=== PATIENT | male | born 1950 | race Caucasian/White ===

== ENCOUNTER 2020-06-25 13:41 | Outpatient (REF) | payer OTHER, SELFPAY ==
[2020-06-26 07:56] LABS: Estimated Average Glucose 148 mg/dL; Hemoglobin A1c % 6.8 %
== END 2020-06-25 13:42 | disposition home or self-care (01) ==
LOC: HO.MANLR 13:41
PROVIDERS: PCP Internal Medicine; Visit Provider Internal Medicine
DX: E11.65 Type 2 diabetes mellitus with hyperglycemia (principal)
CPT/HCPCS: 83036

== ENCOUNTER 2020-11-02 08:38 | Outpatient (REF) | payer OTHER, SELFPAY ==
[2020-11-02 12:04] LABS: Estimated Average Glucose 177 mg/dL; Hemoglobin A1c % 7.8 %
[2020-11-02 12:50] LABS: Alanine Aminotransferase 35 U/L (0-40); Albumin Level 4.2 g/dL (3.5-5.0); Alkaline Phosphatase 55 U/L (39-117); Anion Gap 13 (12-20); Aspartate Amino Transferase 24 U/L (5-37); Bilirubin Total 0.6 mg/dL (0.0-1.0); Blood Urea Nitrogen 17 mg/dL (9-16); Calcium 9.2 mg/dL (8.4-10.2); Carbon Dioxide 28 mmol/L (22-29); Chloride 103 mmol/L (96-108); Cholesterol 235 mg/dL; Estimated Glomerular Filt Rate > 60; Glucose Fasting 189 mg/dL (60-99); HDL Cholesterol 41 mg/dL; LDL Cholesterol Calculated 129 mg/dl; Potassium 4.4 mmol/L (3.3-5.1); Sodium 140 mmol/L (135-145); Triglycerides 328 mg/dL
[2020-11-02 18:20] LABS: Creatinine Urine 139.76 mg/dL; Microalbum/Creatinine Ratio Ur 13.5 ug/mg cr
== END 2020-11-02 08:39 | disposition home or self-care (01) ==
LOC: HO.MANLR 08:38
PROVIDERS: PCP Internal Medicine; Visit Provider Internal Medicine
DX: E11.65 Type 2 diabetes mellitus with hyperglycemia (principal)
CPT/HCPCS: 36415; 80053; 80061; 82043; 83036

== ENCOUNTER 2021-02-25 15:32 | Outpatient (REF) | payer OTHER, SELFPAY ==
[2021-02-25 18:08] LABS: Estimated Average Glucose 166 mg/dL; Hemoglobin A1c % 7.4 %
== END 2021-02-25 15:33 | disposition home or self-care (01) ==
LOC: HO.MANLDS 15:32
PROVIDERS: PCP Internal Medicine; Visit Provider Internal Medicine
DX: E11.65 Type 2 diabetes mellitus with hyperglycemia (principal)
CPT/HCPCS: 36415; 83036

== ENCOUNTER 2021-05-30 10:05 | Outpatient (REF) | payer OTHER, SELFPAY ==
[2021-05-30 11:41] LABS: Estimated Average Glucose 174 mg/dL; Hemoglobin A1c % 7.7 %
== END 2021-05-30 10:06 | disposition home or self-care (01) ==
LOC: HO.MANLDS 10:05
PROVIDERS: PCP Internal Medicine; Visit Provider Internal Medicine
DX: E11.65 Type 2 diabetes mellitus with hyperglycemia (principal)
CPT/HCPCS: 36415; 83036

== ENCOUNTER 2021-09-05 09:56 | Outpatient (REF) | payer OTHER, SELFPAY ==
[2021-09-05 11:35] LABS: Estimated Average Glucose 203 mg/dL; Hemoglobin A1c % 8.7 %
[2021-09-05 11:49] LABS: Alanine Aminotransferase 38 U/L (0-40); Albumin Level 4.1 g/dL (3.5-5.0); Alkaline Phosphatase 62 U/L (39-117); Anion Gap 12 (12-20); Aspartate Amino Transferase 27 U/L (5-37); Bilirubin Total 0.5 mg/dL (0.0-1.0); Blood Urea Nitrogen 12 mg/dL (9-16); Calcium 9.4 mg/dL (8.4-10.2); Carbon Dioxide 28 mmol/L (22-29); Chloride 103 mmol/L (96-108); Cholesterol 253 mg/dL; Estimated Glomerular Filt Rate > 60; Glucose Fasting 225 mg/dL (60-99); HDL Cholesterol 41 mg/dL; LDL Cholesterol Calculated 159 mg/dl; Potassium 4.4 mmol/L (3.3-5.1); Sodium 139 mmol/L (135-145); Total Protein 7.4 g/dL (6.5-8.0); Triglycerides 267 mg/dL
== END 2021-09-05 09:57 | disposition home or self-care (01) ==
LOC: HO.MANLDS 09:56
PROVIDERS: PCP Internal Medicine; Visit Provider Internal Medicine
DX: E11.65 Type 2 diabetes mellitus with hyperglycemia (principal)
CPT/HCPCS: 36415; 80053; 80061; 83036

== ENCOUNTER 2022-03-31 08:42 | Outpatient (REF) | payer OTHER, SELFPAY ==
[2022-03-31 11:40] LABS: Estimated Average Glucose 137 mg/dL; Hemoglobin A1c % 6.4 %
[2022-03-31 11:41] LABS: Alanine Aminotransferase 22 U/L (0-40); Albumin Level 3.9 g/dL (3.5-5.0); Alkaline Phosphatase 46 U/L (39-117); Anion Gap 14 (12-20); Aspartate Amino Transferase 20 U/L (5-37); Bilirubin Total 0.4 mg/dL (0.0-1.0); Blood Urea Nitrogen 12 mg/dL (9-16); Calcium 8.9 mg/dL (8.4-10.2); Carbon Dioxide 28 mmol/L (22-29); Chloride 104 mmol/L (96-108); Cholesterol 248 mg/dL; Estimated Glomerular Filt Rate > 60; Glucose Random 149 mg/dL (60-115); HDL Cholesterol 42 mg/dL; LDL Cholesterol Calculated 136 mg/dl; Potassium 4.4 mmol/L (3.3-5.1); Sodium 142 mmol/L (135-145); Total Protein 6.9 g/dL (6.5-8.0); Triglycerides 353 mg/dL
== END 2022-03-31 08:43 | disposition home or self-care (01) ==
LOC: HO.MANLDS 08:42
PROVIDERS: Visit Provider Internal Medicine
DX: E11.65 Type 2 diabetes mellitus with hyperglycemia (principal)
CPT/HCPCS: 36415; 80053; 80061; 83036

== ENCOUNTER 2022-04-03 10:45 | Outpatient (REF) | payer OTHER, SELFPAY ==
[2022-04-03 13:54] LABS: Creatinine Urine 107.16 mg/dL; Microalbum/Creatinine Ratio Ur 7.4 ug/mg cr
== END 2022-04-03 10:46 | disposition home or self-care (01) ==
LOC: HO.MANLNP 10:45
PROVIDERS: Visit Provider Internal Medicine
DX: E11.65 Type 2 diabetes mellitus with hyperglycemia (principal)
CPT/HCPCS: 82043

== ENCOUNTER 2022-07-17 10:01 | Outpatient (REF) | payer OTHER, SELFPAY ==
[2022-07-17 11:49] LABS: Estimated Average Glucose 151 mg/dL; Hemoglobin A1c % 6.9 %
== END 2022-07-17 10:02 | disposition home or self-care (01) ==
LOC: HO.MANLDS 10:01
PROVIDERS: Visit Provider Internal Medicine
DX: E11.65 Type 2 diabetes mellitus with hyperglycemia (principal)
CPT/HCPCS: 36415; 83036

== ENCOUNTER 2022-11-03 08:16 | Outpatient (REF) | payer OTHER, SELFPAY ==
[2022-11-03 11:58] LABS: Estimated Average Glucose 157 mg/dL; Hemoglobin A1c % 7.1 %
[2022-11-03 12:28] LABS: Creatinine Urine 120.82 mg/dL; Microalbum/Creatinine Ratio Ur 8.2 ug/mg cr
[2022-11-03 12:44] LABS: Alanine Aminotransferase 32 U/L (0-40); Alkaline Phosphatase 53 U/L (39-117); Anion Gap 13 (12-20); Aspartate Amino Transferase 20 U/L (5-37); Bilirubin Total 0.5 mg/dL (0.0-1.0); Blood Urea Nitrogen 15 mg/dL (9-16); Calcium 9.1 mg/dL (8.4-10.2); Carbon Dioxide 29 mmol/L (22-29); Chloride 103 mmol/L (96-108); Cholesterol 247 mg/dL; Estimated Glomerular Filt Rate > 60; Glucose Random 169 mg/dL (60-115); HDL Cholesterol 41 mg/dL; LDL Cholesterol Calculated 144 mg/dl; Potassium 4.5 mmol/L (3.3-5.1); Sodium 140 mmol/L (135-145); Total Protein 6.8 g/dL (6.5-8.0); Triglycerides 313 mg/dL
== END 2022-11-03 08:17 | disposition home or self-care (01) ==
LOC: HO.MANLDS 08:16
PROVIDERS: Visit Provider Internal Medicine
DX: E11.65 Type 2 diabetes mellitus with hyperglycemia (principal)
CPT/HCPCS: 36415; 80053; 80061; 82043; 83036

== ENCOUNTER 2023-03-30 08:19 | Outpatient (REF) | payer OTHER, SELFPAY ==
[2023-03-30 14:08] LABS: Estimated Average Glucose 137 mg/dL; Hemoglobin A1c % 6.4 %
== END 2023-03-30 08:20 | disposition home or self-care (01) ==
LOC: HO.MANLDS 08:19
PROVIDERS: Visit Provider Internal Medicine
DX: E11.65 Type 2 diabetes mellitus with hyperglycemia (principal)
CPT/HCPCS: 36415; 83036

== ENCOUNTER 2023-04-02 14:31 | Outpatient (REF) | payer OTHER, SELFPAY ==
[2023-04-02 17:33] LABS: MANUAL DIFF FLAG NO
[2023-04-02 17:59] LABS: Alanine Aminotransferase 26 U/L (0-40); Albumin Level 4.2 g/dL (3.5-5.0); Alkaline Phosphatase 54 U/L (39-117); Anion Gap 19 (12-20); Aspartate Amino Transferase 23 U/L (5-37); Bilirubin Total 0.3 mg/dL (0.0-1.0); Blood Urea Nitrogen 17 mg/dL (9-16); Calcium 10.3 mg/dL (8.4-10.2); Carbon Dioxide 22 mmol/L (22-29); Chloride 103 mmol/L (96-108); Estimated Glomerular Filt Rate > 60; Glucose Random 152 mg/dL (60-115); Potassium 4.5 mmol/L (3.3-5.1); Sodium 139 mmol/L (135-145); Total Protein 7.7 g/dL (6.5-8.0)
[2023-04-02 18:48] LABS: Basophils Absolute Auto 0.1 X10*3/uL (0.0-0.2); Basophils Percent Auto 0.7 % (0-2); Eosinophils Absolute Auto 0.1 X10*3/uL (0.0-0.4); Eosinophils Percent Auto 1.2 % (0-4); Hematocrit 41.2 % (42.0-52.0); Hemoglobin 13.2 g/dl (14.0-18.0); Imm Gran Abs Auto 0.05 X10*3/uL (0.00-0.03); Imm Gran Pct Auto 0.4 % (0.0-0.4); Lymphocytes Absolute Auto 2.5 X10*3/uL (1.2-4.9); Lymphocytes Percent Auto 21.4 % (20-40); Mean Corpuscular Hemoglobin 29.7 pg (27.0-33.0); Mean Corpuscular Volume 92.8 fL (80.0-98.0); Mean Platelet Volume 10.2 fL (9.4-12.4); Monocytes Absolute Auto 1.3 X10*3/uL (0.1-1.2); Monocytes Percent Auto 11.7 % (2-11); Neutrophils Absolute Auto 7.4 x10*3/uL (2.0-8.3); Neutrophils Percent Auto 64.6 % (45-73); Platelet Count 353 X10*3/uL (160-400); Red Blood Count 4.44 X10*6/uL (4.60-5.80); Red Cell Distribution Width 13.2 % (11.0-16.0); White Blood Count 11.4 X10*3/uL (4.8-10.8)
== END 2023-04-02 14:32 | disposition home or self-care (01) ==
LOC: HO.MANLDS 14:31
PROVIDERS: Visit Provider Internal Medicine
DX: E11.65 Type 2 diabetes mellitus with hyperglycemia (principal)
CPT/HCPCS: 36415; 80053; 85025

== ENCOUNTER 2023-06-29 13:12 | Outpatient (REF) | payer OTHER, SELFPAY ==
[2023-06-29 14:27] LABS: Estimated Average Glucose 148 mg/dL; Hemoglobin A1c % 6.8 % (<6.0)
== END 2023-06-29 13:13 | disposition home or self-care (01) ==
LOC: HO.MANLDS 13:12
PROVIDERS: Visit Provider Internal Medicine
DX: E11.65 Type 2 diabetes mellitus with hyperglycemia (principal)
CPT/HCPCS: 36415; 83036

== ENCOUNTER 2023-11-16 08:03 | Outpatient (REF) | payer OTHER, SELFPAY ==
[2023-11-16 13:41] LABS: Estimated Average Glucose 160 mg/dL; Hemoglobin A1c % 7.2 % (<6.0)
[2023-11-16 14:17] LABS: Alanine Aminotransferase 25 U/L (0-40); Alkaline Phosphatase 54 U/L (39-117); Anion Gap 16 (12-20); Aspartate Amino Transferase 18 U/L (5-37); Bilirubin Total 0.3 mg/dL (0.0-1.0); Blood Urea Nitrogen 17 mg/dL (9-16); Calcium 9.6 mg/dL (8.4-10.2); Carbon Dioxide 23 mmol/L (22-29); Chloride 104 mmol/L (96-108); Cholesterol 261 mg/dL (<200); Estimated Glomerular Filt Rate > 60; Glucose Random 157 mg/dL (60-115); HDL Cholesterol 45 mg/dL (>40); LDL Cholesterol Calculated 141 mg/dL (<100); Potassium 4.5 mmol/L (3.3-5.1); Sodium 138 mmol/L (135-145); Total Protein 7.6 g/dL (6.5-8.0); Triglycerides 375 mg/dL (<150)
== END 2023-11-16 08:04 | disposition home or self-care (01) ==
LOC: HO.MANLDS 08:03
PROVIDERS: Visit Provider Internal Medicine
DX: E11.65 Type 2 diabetes mellitus with hyperglycemia (principal)
CPT/HCPCS: 36415; 80053; 80061; 83036

== ENCOUNTER 2024-02-25 10:13 | Outpatient (REF) | payer OTHER, SELFPAY ==
[2024-02-25 13:42] LABS: Estimated Average Glucose 169 mg/dL; Hemoglobin A1c % 7.5 % (<6.0)
== END 2024-02-25 10:14 | disposition home or self-care (01) ==
LOC: HO.MANLDS 10:13
PROVIDERS: Visit Provider Internal Medicine
DX: E11.65 Type 2 diabetes mellitus with hyperglycemia (principal)
CPT/HCPCS: 36415; 83036

== ENCOUNTER 2024-04-08 14:39 | Outpatient (REF) | payer OTHER, SELFPAY ==
[2024-04-08 18:15] LABS: MANUAL DIFF FLAG NO
[2024-04-08 18:27] LABS: Basophils Absolute Auto 0.1 X10*3/uL (0.0-0.2); Basophils Percent Auto 0.7 % (0-2); D Dimer High Sensitivity < 150 NG/ML; Eosinophils Absolute Auto 0.1 X10*3/uL (0.0-0.4); Hematocrit 46.8 % (42.0-52.0); Hemoglobin 15.6 g/dl (14.0-18.0); Imm Gran Abs Auto 0.04 X10*3/uL (0.00-0.03); Imm Gran Pct Auto 0.4 % (0.0-0.4); Lymphocytes Absolute Auto 2.2 X10*3/uL (1.2-4.9); Lymphocytes Percent Auto 21.2 % (20-40); Mean Corpuscular HGB Conc 33.3 g/dl (31.0-36.0); Mean Corpuscular Hemoglobin 30.4 pg (27.0-33.0); Mean Corpuscular Volume 91.1 fL (80.0-98.0); Mean Platelet Volume 10.7 fL (9.4-12.4); Monocytes Absolute Auto 1.1 X10*3/uL (0.1-1.2); Monocytes Percent Auto 10.3 % (2-11); Neutrophils Absolute Auto 6.8 x10*3/uL (2.0-8.3); Neutrophils Percent Auto 66.4 % (45-73); Platelet Count 337 X10*3/uL (160-400); Red Blood Count 5.14 X10*6/uL (4.60-5.80); Red Cell Distribution Width 13.3 % (11.0-16.0); White Blood Count 10.3 X10*3/uL (4.8-10.8)
[2024-04-08 18:35] LABS: Alanine Aminotransferase 26 U/L (0-40); Albumin Level 4.4 g/dL (3.5-5.0); Alkaline Phosphatase 59 U/L (39-117); Anion Gap 16 (12-20); Aspartate Amino Transferase 18 U/L (5-37); Bilirubin Total 0.2 mg/dL (0.0-1.0); Blood Urea Nitrogen 20 mg/dL (9-16); C Reactive Protein 0.28 mg/dL (< or = 0.50); Calcium 10.2 mg/dL (8.4-10.2); Carbon Dioxide 26 mmol/L (22-29); Chloride 102 mmol/L (96-108); Estimated Glomerular Filt Rate > 60; Gamma Glutamyl Transpeptidase 60 U/L (11-51); Glucose Random 169 mg/dL (60-115); Iron 60 mcg/dL (45-160); Percent Iron Saturation 19 % (15-50); Potassium 4.2 mmol/L (3.3-5.1); Sodium 140 mmol/L (135-145); Total Iron Binding Capacity 324 mcg/dL (228-428); Total Protein 8.2 g/dL (6.5-8.0); Unsaturated Iron Binding 264 ug/dL
[2024-04-08 18:49] LABS: Prostate Specific Antigen 0.66 ng/mL (<0.05-4.0)
[2024-04-08 18:51] LABS: Amylase 63 U/L (28-100); Lipase 32 U/L (8-78)
[2024-04-08 18:56] LABS: Ferritin 80 ng/mL (20-250); Free T4 (Free Thyroxine) 0.97 ng/dL (0.71-1.85); Thyroid Stimulating Hormone 1.34 uIU/mL (0.32-4.0); Vitamin D 25-OH Total 109.6 ng/mL (>30)
[2024-04-08 18:57] LABS: Erythrocyte Sedimentation Rate 30 MM/HR (0-15)
[2024-04-08 19:04] LABS: Folate 13.5 ng/mL (> or = 4.0); Vitamin B12 407 pg/mL (200-900)
[2024-04-09 05:51] LABS: Parathyroid Hormone Intact 53.4 pg/mL (8.7-77.1)
[2024-04-09 12:42] LABS: Lyme Abs Screen <0.90 index
[2024-04-10 12:48] LABS: Thyroid Peroxidase Antibodies <1 IU/mL (<9)
[2024-04-14 16:25] LABS: Thyroid Stimulating Immunoglob <89 % baseline (<140)
== END 2024-04-08 14:40 | disposition home or self-care (01) ==
LOC: HO.MANLDS 14:39
PROVIDERS: Visit Provider Physician Assistant
DX: R53.83 Other fatigue (principal); R07.89 Other chest pain; R35.1 Nocturia; K59.00 Constipation, unspecified; Z12.5 Encounter for screening for malignant neoplasm of prostate
CPT/HCPCS: 36415; 80053; 82150; 82306; 82607; 82728; 82746; 82977; 83540; 83690; 83970; 84153; 84439; 84443; 84445; 85025; 85379; 85652; 86140; 86376; 86617; 86618

== ENCOUNTER 2024-04-09 09:30 | Outpatient (REF) | payer OTHER, SELFPAY ==
[2024-04-09 18:09] LABS: Appearance Urine Clear; Color Urine Yellow; Glucose Urine UA 500 mg/dL (Negative); Leukocyte Esterase Urine Negative (Negative); Nitrite Urine Negative (Negative); Specific Gravity - Urine >= 1.030 (1.005-1.025); Urine Blood Negative (Negative); Urine Ketones Trace mg/dL (Negative); Urine Protein Negative (Neg-Trace)
== END 2024-04-09 09:31 | disposition home or self-care (01) ==
LOC: HO.MANLNP 09:30
PROVIDERS: Visit Provider Physician Assistant
DX: R35.1 Nocturia (principal)
CPT/HCPCS: 81003

== ENCOUNTER 2025-01-21 11:18 | Outpatient (REF) | payer OTHER, SELFPAY ==
--- OUTSIDE RECORDS SUMMARY | 2025-01-21 12:34 | XMS_ITS | Continuity of Care Document ---
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 MODERATE MUST MEET 2 OUT OF 3 ELEMENTS: PROBLEMS, DATA OR RISK ELEMENT 1: PROBLEMS ADDRESSED 1 OR MORE CHRONIC ILLNESS WITH EXACERBATION OR 2 OR MORE STABLE CHRONIC ILLNESSES OR 1 UNDIAGNOSED NEW PROBLEM OR 1 ACUTE ILLNESS W/SYMPTOMS OR 1 ACUTE COMPLICATED INJURY ELEMENT 2: DATA MUST MEET 1 OF 3 CATEGORIES CATEGORY 1: REVIEW OF PRIOR EXTERNAL NOTES, REVIEW OF RESULTS, ORDERING OF EACH TEST, ASSESSMENT REQUIRING INDEPENDENT HISTORIAN OR CATEGORY 2: INDEPENDENT INTERPRETATION OF TESTS BY ANOTHER PHYSICIAN OR SPECIALIST OR CATEGORY 3: DISCUSSION OF MGT OR TEST INTERPRETATION W/EXTERNAL PHYSICIAN OR SPECIALIST ELEMENT 3: RISK RISK OF COMPLICATIONS AND/OR MORBIDITY OR MORTALITY OF PATIENT MANAGEMENT PROVIDER MUST THOROUGHLY DOCUMENT EACH ELEMENT THAT IS COVERED Not available 01/21/2025 11:09:08 Plan of Treatment Reminders Order Date Submit Date Provider Last Modified By Organization Details Last Modified Time Details Appointments SDV 2024 10:30A M DR DE LA ROSA Not available Not available Not available FOLLOW UP 15 2024 11:30A M DR DE LA ROSA Not available Not available Not available Lab hemoglobi n A1c, QN, blood 2024 025 [facility], [address] [place] [address], [place], [address], 01/21/2025 11:12:11 CMP, serum or plasma 2024 025 [facility], [address] [place], [address], 01/21/2025 11:12:11 Referral None recorded. Procedures None recorded. Surgeries None recorded. Imaging None recorded. Medication Orders erythromy home 5 mg/gram (0.5 %) eye ointment 2024 025 [facility], [address] [place], [address], 01/21/2025 11:15:10 Patient TargetsNo targets recorded. Patient Instructions Encounter Date Encounter Id Patient Instructions Last Modified By Organization Details Last Modified Time 01/21/2025 [id number] learning about type 2 diabetes Not available 01/21/2025 11:11:04 type 2 diabetes: care instructions Not available 01/21/2025 11:11:04 psoriasis: care instructions Not available 01/21/2025 11:11:03 high blood pressure: care instructions Not available 01/21/2025 11:11:04 learning about high blood pressure Not available 01/21/2025 11:11:04 Reason for Referral None Reported. Problems Name Problem SNOMED Code Status Onset Date Resolution Date Notes Provider Name and Address Organization Details Recorded Time Type 2 diabetes mellitus 11183469 Active 2017 Ellen vu [facility] 4 11:43:23 Psoriasis 1036578 Active 2017 Pernell De La Rosa, DO [address] [place], [address], [facility] 5 11:09:33 Ischemic heart disease 566467227 Active 2017 stent 8 Ellen vu [facility] 4 09:01:01 Osteomyel itis of vertebra 064942765 Active 2017 C5-6 Ellen vu [facility] 4 09:01:01 Essential hypertens ion 22615502 Active 2017 Ellen vu [facility] 4 11:43:23 Hyperchol esterolem ia 57210082 Active 2017 Ellen vu, [facility] 4 11:43:22 Onychomyc osis 895938972 Active 2020 Not Available [facility] 4 03:28:44 Benign prostatic hyperplas ia 501267631 Active 2021 Ellen vu, [facility] 4 09:01:01 Osteoarth ritis of hip 951695940 Active 2021 Ellen vu, [facility] 4 09:01:01 Bilateral osteoarth ritis of knees 606981093294 107 Active 2021 Ellen vu, [facility] 4 09:01:01 Pain of bilateral hip joints 519868485948 24355 Active 2021 Ellen vu [facility] 4 09:01:13 Pleural effusion 35065600 Active 2022 Ellen vu, [facility] 4 09:01:01 Acute pericardi al effusion 63396681 Active 2022 Not Available [facility] 4 03:28:44 Pericardi tis 2111939 Active 2022 Not Available [facility] 4 03:28:44 Post-acut e COVID-19 2218733566 Active 2023 Ellen vu [facility] 4 09:01:13 Acute sinusitis 21225338 Active 2023 Ellen vu [facility] 4 09:01:13 COVID-19 007833134 Active 2023 Ellen vu, [facility] 4 09:01:13 Pressure injury of buttock stage I 118857356962 94911 Active 2023 Ellen vu [facility] 4 09:01:13 Pericardi al effusion 070683534 Active 2023 Pernell De La Rosa DO [address] [place] [address], [phone], [facility] 4 10:59:47 Fatigue 37674331 Active 2023 AYLIN LOPEZ [address] [place] [address], [address], [facility] 4 14:23:24 Atypical chest pain 341032598 Active 2023 AYLIN LOPEZ [address] [place] [address], [address], [facility] 4 14:24:51 Nocturia 405671147 Active 2023 AYLIN LOPEZ [address] [place] [address], [address], [facility] 4 14:25:38 Constipat ion 55723159 Active 2023 AYLIN LOPEZ [address] [place] [address], [address], [facility] 4 14:26:05 Tremor 85716719 Active 2023 Pernell De La Rosa DO [address] [place] [address], [address], [facility] 4 16:42:16 Mixed sleep apnea 683133938 Active 2023 Pernell De La Rosa DO [address] [place] [address], [phone], [facility] 4 20:45:58 Sleep apnea 64755607 Active 2023 Pernell De La Rosa DO [address] [place] [address], [address], [facility] 4 21:08:59 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 Please review these documents and add these problems to the patient's chart manually as needed. Problem Notes None recorded. Medical Equipment None Reported. Allergies Allergen ID Allergen Name Allergen Category Reaction Reaction Severity Criticality Documentation Date Start Date Code Code System Note Provider Name and Address Organization Details Recorded Time 360 penicilli n V Not available Not available Not available Not available 11/07/2017 7984 [facility] 08:[facility]18 361 Product containin g 3-hydroxy -3-methyl glutaryl- coenzyme A reductase inhibitor (product) medicatio n myalgias (muscle pain) Not available Not available 11/07/2017 57396 009 [facility] 08:[facility]26 Medications Name Sig Start Date Stop Date Status Note LastModified by Organization Details LastModified Time Prescriptio n - Renewal active Not Available Not Available Not Available doxycycline hyclate 100 mg capsule Take 1 capsule twice a day by oral route with meals for 10 days. 02/25 completed Not Available Not Available Not Available ketoconazol e 2 % shampoo APPLY TOPICALLY TO THE SCALP EVERY DAY. LEAVE ON 10 MINUTES THEN RINSE. WHEN CONTROLLE D USE 2 TIMES A WEEK FOR MAINTENAN CE active Not Available Not Available No t Available azithromyci n 250 mg tablet TAKE 2 TABLETS BY MOUTH TODAY, THEN TAKE 1 TABLET DAILY FOR 4 DAYS DIRECTED 11/18 completed Not Available Not Available Not Available ibuprofen 800 mg tablet TAKE 1 TABLET BY MOUTH 3 TIMES A DAY FOR 5 DAYS. DISCONTIN UE IF PAIN HAS COMPLETEL Y RESOLVED. 07/02 completed Not Available Not Available Not Available polysacchar leobardo iron complex 150 mg iron capsule TAKE 1 CAPSULE BY MOUTH TWICE A DAY *NOT COVERED* active Not Available Not Available No t Available betamethaso ne, augmented 0.05 % topical cream PLEASE SEE ATTACHED FOR DETAILED DIRECTION S active Not Available Not Available No t Available fluorouraci l 5 % topical cream PLEASE SEE ATTACHED FOR DETAILED DIRECTION S active Not Available Not Available No t Available glipizide ER 5 mg tablet, extended release 24 hr TAKE 1 TABLET BY MOUTH EVERY DAY NEEDS APPT FOR FURTHER REFILLS. CALL OFFICE active Not Available Not Available No t Available nystatin 500,000 unit tablet TAKE 2 TABLETS BY MOUTH TWICE A DAY active Not Available Not Available No t Available triamcinolo ne acetonide 0.1 % topical cream 08/18 completed Not Available Not Available Not Available oxycodone-a cetaminophe n 5 mg-325 mg tablet TAKE 1 TABLET BY MOUTH EVERY 6 HOURS FOR PAIN. WILL CAUSE DROWSINES S 04/02 completed Not Available Not Available Not Available terbinafine HCl 250 mg tablet TAKE 1 TABLET BY MOUTH EVERY DAY 02/28 completed Not Available Not Available Not Available amoxicillin 875 mg tablet 04/02 completed Not Available Not Available Not Available triamcinolo ne acetonide 0.025 % topical cream PLEASE SEE ATTACHED FOR DETAILED DIRECTION S active Not Available Not Available No t Available tamsulosin 0.4 mg capsule TAKE 1 CAPSULE BY MOUTH EVERY DAY 11/18 completed Not Available Not Available Not Available pantoprazol e 40 mg tablet,reina yed release TAKE 1 TABLET BY MOUTH 2 TIMES A DAY FOR 14 DAYS. 07/02 completed Not Available Not Available Not Available erythromyci n 5 mg/gram (0.5 %) eye ointment APPLY 1 CM RIBBON INTO THE LOWER CONJUNCTI DINAH SAC(S) IN THE AFFECTED EYE(S) BY OPHTHALMI C ROUTE 3 TIMES PER DAY 2024 active Not Available Not Available Not Avai lable metformin 1,000 mg tablet TAKE 1 TABLET BY MOUTH TWICE A DAY NEEDS APPT FOR FURTHER REFILLS. CALL OFFICE 2024 active Not Available Not Available Not Avai lable calcipotrie ne 0.005 % topical cream PLEASE SEE ATTACHED FOR DETAILED DIRECTION S active Not Available Not Available No t Available furosemide 20 mg tablet TAKE ONE TAB QD PO 07/02 completed Not Available Not Available Not Available nystatin 100,000 unit/gram topical powder APPLY TO AFFECTED AREA 3 TIMES A DAY active Not Available Not Available No t Available methylpredn isolone 4 mg tablets in a dose pack as directed 01/02 completed Not Available Not Available Not Available colchicine 0.6 mg tablet TAKE 1 TABLET BY MOUTH 2 TIMES A DAY. 11/18 completed Not Available Not Available Not Available ketoconazol e 2 % topical cream APPLY TOPICALLY TO THE AFFECTED AREA OF FACE TWICE DAILY active Not Available Not Available No t Available lisinopril 2.5 mg tablet TAKE 1 TABLET BY MOUTH EVERY DAY- NEEDS APPT FOR FURTHER REFILLS 2024 active Not Available Not Available Not Avai lable naproxen 375 mg tablet,reina yed release 07/02 completed Not Available Not Available Not Available Asprin Ec Low Dose 81 mg tablet,reina yed release Take 1 tablet every day by oral route. active Not Available Not Available No t Available alfuzosin ER 10 mg tablet,exte nded release 24 hr TAKE 1 TABLET BY MOUTH EVERY DAY FOR 30 DAYS active Not Available Not Available No t Available metoprolol tartrate 25 mg tablet TAKE 1 TABLET BY MOUTH TWICE A DAY 11/18 completed Not Available Not Available Not Available clobetasol 0.05 % shampoo PLEASE SEE ATTACHED FOR DETAILED DIRECTION S active Not Available Not Available No t Available magnesium active Not Available Not Perlita ilable Not Available CoQ10 active Not Available Not Availa ble Not Available multivitami n active Not Available Not Available Not Available Vitamin D3 10 mcg (400 unit) capsule Take 1 unit every day by oral route. active Not Available Not Available No t Available coQ10 (liposomal ubiquinol) 04/28 completed Not Available Not Available Not Available Ilevro 0.3 % eye drops,suspe nsion 08/18 completed Not Available Not Available Not Available Vitals Date Recorded Body height Body mass index (BMI) Body weight Heart rate Oxygen saturation Oxygen saturation in Arterial blood by Pulse oximetry Systolic blood pressure Diastolic blood pressure Provider Name and Address Organization Details Last Updated DateTime 5 176.53 cm 31.9 kg/m2 20254.5 3 g 78 /min 97 % 97 % 124 mm[Hg] 68 mm[Hg] [facility] 5 10:41:12 Social History Question Answer Notes LastModified by Organizat ion Details LastModified Time Tobacco Smoking Status Former Smoker Not Available [facility] 07/06/2020 03:36:24 What Was The Date Of Your Most Recent Tobacco Screening? 01/21/2025 [email or web address] Information not available 01/21/2025 Sex: Unknown Functional Status Question Answer Note LastModified by Organization D etails LastModified Time Do you or have you ever used any other forms of tobacco or nicotine? No Information not available 07/19/2022 Mental Status None recorded. Family History Nothing Reported. Medical History No medical history recorded. Immunizations Vaccine Type Date Status Note Provider Nam e and Address Organization Details Recorded Time COVID-19, mRNA, LNP-S, PF, 30 mcg/0.3 mL dose 06/23/2021 completed Not Available [facility] 4 03:28:44 COVID-19, mRNA, LNP-S, PF, 30 mcg/0.3 mL dose 10/28/2020 completed Not Available [facility] 4 03:28:44 COVID-19, mRNA, LNP-S, PF, 30 mcg/0.3 mL dose 10/04/2020 completed Not Available [facility] 4 03:28:44 Past Encounters Encounter ID Performer Location Encounter Start Date Encounter Closed Date Diagnosis/Indication Diagnosis SNOMED-CT Code Diagnosis ICD10 Code Diagnosis Note [id number] DO [facility] [address] [address] 01/21/2025 10:30:29 01/21/2025 11:26:22 Type 2 diabetes mellitus 13807507 E11.65 a1c is pending today PRIOR: currently is 7.5 was 7.2 prior 6.8 despite the recent pericardit is PRIOR 6.4 was 7.1 last a1c is 6.4 and was 7.7 and 7.4 and prior 7.8 and last was 6.8 and before was was 7.7 so he is doing better thanks to his wifes cooking .but admits he has had a prob with keeping good diet Essential hypertension 37698076 I10 bp stable relates that he is doing fine and without issue with meds and has started to walk more states his left hip is more bothersome and now he is noticing that his gait is less stable echo looked great no issues Psoriasis 0327513 L40.9 is doing better with naltrexone !!!! [facility] Hordeolum externum of upper eyelid of left eye 0110487350 99273 H00.014 will tx Health Concerns Section Related Observation LastModified by Organization Detai ls LastModified Time None Recorded Concern Status LastModified by Organization Details LastModified Time None Recorded Payers Encounter Date Sequence Insurance Name Policy Number Policy Espinal Covered Member ID Espinal Member ID Guarantor Name 01/21/[address] [place] [address] [id number] Ryley Quiroga [id number] Ryley Quiroga Notes Date Note Type Note Provider Name and Address Organization Details Recorded Time 5 text/htm l Care Management - DiabetesReported bypatient.Self Care:seeing eye doctor yearly for dilated eye exam; checking feet regularly; normal range of home blood sugars (in the low 100s); no side effects from medications Associated Symptoms:symptoms are usually well controlled; no fatigue; no dizziness; no excessive sweating; no headaches; no confusion; no increased thirst; no increased appetite; no increased urination; no blurred vision; no numbness of feet; no calluses on feetCare Management - HypertensionReported bypatient.Self Care:not under emotional stress Severity:symptoms are improving; does not interfere with daily activities Associated Symptoms:no dizziness; no lightheadedness; no chest pain; no shortness of breath; no palpitations; no edema; no calf muscle cramps; no blurred vision; no confusion; no headaches; no fatigue her e for rechk doing ok getting txrelates he has a great monitor for glucose with the freestyle doing very wellstill sleeps longstates he is taking methylene blue for the mitochondrial diseasesees specialist in [place] doing a NAD tx for the mitochondrial ds but pays $625 for each infusion and also supp also taking naltrexone 3 tabs hs and his psoriasis and cleared up having an issue with his left eye irritated an swollen eyelid etc Pernell De La Rosa, DO [address] [facility], [place], [address], [facility] 01/21/2025 11:17:17
--- OUTSIDE RECORDS SUMMARY | 2025-01-21 12:35 | XMS_ITS | Data Portability ---
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 REVIEW OF PRIOR EXTERNAL NOTES/RESULTS, ORDERING OF TEST(S) CATEGORY 2. 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) MDM MODERATE MUST MEET 2 OUT OF [...] hemoglobi n A1c, QN, blood 2024 025 [facility], [address] [place] [address], [id number], 01/21/2025 11:12:11 CMP, serum or plasma 2024 025 [facility], [address] [place] [address], [id number], 01/21/2025 11:12:11 gamma-glu tamyl transfera se (ggt), serum 2023 024 [facility], [address] [place] [address], [id number], 04/08/2024 14:28:17 PTH (parathyr oid hormone), intact + calcium, serum or plasma 2023 024 [facility], [address] [place] [address], [address], 04/08/2024 14:28:18 amylase + lipase, serum 2023 024 [facility], [address] [place] [address], 94[address], 04/08/2024 14:28:18 D-dimer, quant, plasma 2023 024 [facility], [address] [place] [address], [address], 04/08/2024 14:28:18 PSA, total, serum or plasma 2023 024 [facility], [address] [place] [address], 87[address], 04/08/2024 14:28:18 urinalysi s complete, reflex culture 2023 024 [facility], [address] [place] [address], [address], 04/10/2024 11:34:58 TSH + free T4, serum 2023 024 [facility], [address] [place] [address], 74467, 04/08/2024 14:28:18 vitamin B12 + folate, serum or blood 2023 024 [facility], [address] [place] [address], [address], 04/08/2024 14:28:18 CBC w/ auto diff 2023 024 [facility], [address] [place] [address], [address], 04/08/2024 14:28:17 iron + TIBC + ferritin, serum 2023 024 [facility], [address] [place] [address], 345[address], 04/08/2024 14:28:17 CMP, serum or plasma 2023 024 [facility], [address] [place] [address], [address], 04/08/2024 14:28:18 ESR (erythroc yte sedimenta tion rate), blood 2023 024 [facility], [address] [place] [address], [id number], 04/08/2024 14:28:18 vitamin D, 25-hydrox y, total, serum 2023 024 [facility], [address] [place] [address], 65[address], 04/08/2024 14:28:18 C-reactiv e protein, quantitat christiano, serum or plasma 2023 024 [facility], [address] [place] [address], 717[address], 04/08/2024 14:28:18 lyme disease igg+igm, serum, reflex western blot 2023 024 [facility], [address] [place] [address], [id number], 04/10/2024 11:34:35 thyroid peroxidas e (tpo) Ab, serum 2023 024 [facility], [address] [place] [address], [address], 04/11/2024 11:22:50 tsi (thyroid- stimulati ng immunoglo bulin), serum 2023 024 [facility], [address] [facility], [place], [address], 04/15/2024 11:38:[address] referral 2023 024 mayur Bravo MD, [address] [facility], [place], [address], 04/30/2024 09:09:47 Procedures None recorded. Surgeries None recorded. Imaging MRI, cervical spine, w/o contrast 2023 024 john [facility], [address] [place], [address], 04/30/2024 09:10:15 Medication Orders erythromy home 5 mg/gram (0.5 %) eye ointment 2024 025 [facility], [address] [place], [address], 01/21/2025 11:15:10 alfuzosin ER 10 mg tablet,ex tended release 24 hr 2023 024 [facility], [address] [place], [address], 04/28/2024 16:41:34 Patient TargetsNo targets recorded. Patient Instructions Encounter Date Encounter Id Patient Instructions Last Modified By Organization Details Last Modified Time 04/28/2024 [id number] learning about type 2 diabetes Not available 04/28/2024 16:41:32 type 2 diabetes: care instructions Not available 04/28/2024 16:41:32 benign prostatic hyperplasia: care instructions Not available 04/28/2024 16:41:32 01/21/2025 [id number] learning about type 2 diabetes Not available 01/21/2025 11:11:04 type 2 diabetes: care instructions Not available 01/21/2025 11:11:04 psoriasis: care instructions Not available 01/21/2025 11:11:03 high blood pressure: care instructions Not available 01/21/2025 11:11:04 learning about high blood pressure Not available 01/21/2025 11:11:04 Reason for Referral Neurologist Referral for Mac radha Referring Physician: Pernell De La Rosa, Internal Medicine, Encounter Date: 04/28/2024 Results Created Date Observation Date Name Description Value Unit Range Abnormal Flag Note LastModifiedBy Organization Detail LastModifiedTime 03/13/20 24 03/13/2024 US, echoc ardio gram No observ ation record ed. [address], [address], 03/13/2024 21:07:53 05/13/20 24 05/11/2024 MRI, cervi claude spine , w/o contr ast No observ ation record ed. [email or web address] [address], [address], 05/14/2024 16:24:36 06/19/20 24 06/13/2024 sleep study , diagn ostic (PROC ) No observ ation record ed. [id number] [place], [address], 06/22/2024 21:08:32 Result Notes None recorded. Problems Name Problem SNOMED Code Status Onset Date Resolution Date Notes Provider Name and Address Organization Details Recorded Time Type 2 diabetes mellitus 35350977 Active 2017 Ellen vu [facility] 4 11:43:23 Psoriasis 7858752 Active 2017 Pernell De La Rosa, DO [address] [place] [address], [place], [address], [place] [facility] 5 11:09:33 Ischemic heart disease 553906201 Active 2017 stent 200 8 Ellen vu [facility] 4 09:01:01 Osteomyel itis of vertebra 266990154 Active 2017 C5-6 Ellen vu [facility] 4 09:01:01 Essential hypertens ion 37306341 Active 2017 Ellen Burton null, [facility] 4 11:43:23 Hyperchol esterolem ia 03760845 Active 2017 Ellenjanes Burton null, [facility] 4 11:43:22 Onychomyc osis 684533491 Active 2020 Not Available [facility] 4 03:28:44 Benign prostatic hyperplas ia 772667292 Active 2021 Ellen Burton null, [facility] 4 09:01:01 Osteoarth ritis of hip 894074999 Active 2021 Ellen Burton null, [facility] 4 09:01:01 Bilateral osteoarth ritis of knees 045443398317 107 [facility] 2021 [facility] 09:[facility]01 Pain of bilateral hip joints 521745561782 12786 Active 2021 Ellen Burton null, [facility] 4 09:01:13 Pleural effusion 41976348 Active 2022 Ellen vu, [facility] 4 09:01:01 Acute pericardi al effusion 20018527 Active 2022 Not Available [facility] 4 03:28:44 Pericardi tis 6972410 Active 2022 Not Available [facility] 4 03:28:44 Post-acut e COVID-19 4502418598 Active 2023 Ellen Burton null, [facility] 4 09:01:13 Acute sinusitis 76280243 Active 2023 Ellen vu, [facility] 4 09:01:13 COVID-19 800323360 Active 2023 Ellen vu, [facility] 4 09:01:13 Pressure injury of buttock stage I 820723791177 42450 Active 2023 [facility] 4 09:01:13 Pericardi al effusion 478317093 Active 2023 Pernell De La Rosa, DO [address] [place] [address], [address], [facility] 4 10:59:47 Fatigue 57664328 Active 2023 AYLIN LOPEZ [address] [place] [address], [address], [facility] 4 14:23:24 Atypical chest pain 736226929 Active 2023 AYLIN LOPEZ [address] [place] [address], [address], [facility] 4 14:24:51 Nocturia 212851287 Active 2023 AYLIN LOPEZ [address] [place] [address], [address], [facility] 4 14:25:38 Constipat ion 34616665 Active 2023 AYLIN LOPEZ [address] [place] [address], [address], [facility] 4 14:26:05 Tremor 23039493 Active 2023 Pernell De La Rosa, DO [address] [place] [address], [address], [facility] 4 16:42:16 Mixed sleep apnea 700133069 Active 2023 Pernell De La Rosa, DO [address] [place] [address], [address], [facility] 4 20:45:58 Sleep apnea 53784985 Active 2023 Pernell De La Rosa, DO [address] [place] [address], [address], [facility] 4 21:08:59 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 Please review these documents and add these problems to the patient's chart manually as needed. Problem Notes None recorded. Procedures Surgical History None recorded. Imaging Results Imaging Date Name Status LastModified by Organization Details LastModified Time 03/13/2024 [email or web address] [address], [address], 03/13/2024 21:07:53 05/11/2024 MRI, cervical spine, w/o contrast completed [email or web address] [address], [address], 05/14/2024 16:24:36 06/13/2024 sleep study, diagnostic (PROC) completed [address] [place], [address], 06/22/2024 21:08:32 Procedure Notes None recorded. Medical Equipment None Reported. Allergies Allergen ID Allergen Name Allergen Category Reaction Reaction Severity Criticality Documentation Date Start Date Code Code System Note Provider Name and Address Organization Details Recorded Time 360 penicilli n V Not available Not available Not available Not available 11/07/2017 7984 RxNorm Prabha Bar [facility] [place], operated by [facility] 8 08:57:18 361 Product containin g 3-hydroxy -3-methyl glutaryl- coenzyme A reductase inhibitor (product) medicatio n myalgias (muscle pain) Not available Not available 11/07/2017 71824 009 SNOMED ARLETH [facility] 8 08:57:26 Medications Name Sig Start Date [...] height Body mass index (BMI) Body weight Oxygen saturation Oxygen saturation in Arterial blood by Pulse oximetry Heart rate Systolic blood pressure Diastolic blood pressure Provider Name and Address Organization Details Last Updated DateTime 4 177.17 cm 32.2 kg/m2 038790. 1 g 96 % 96 % 93 /min 118 mm[Hg] 70 mm[Hg] Alice Singh [facility] 4 16:05:39 Date Recorded Body height Body mass index (BMI) Body weight Heart rate Oxygen saturation Oxygen saturation in Arterial blood by Pulse oximetry Systolic blood pressure Diastolic blood pressure Provider Name and Address Organization Details Last Updated DateTime 4 177.17 cm 32.2 kg/m2 100889. 1 g 81 /min 98 % 98 % 110 mm[Hg] 60 mm[Hg] Alice Singh [facility] 4 14:07:37 Date Recorded Body height Body mass index (BMI) Body weight Heart rate Oxygen saturation Oxygen saturation in Arterial blood by Pulse oximetry Systolic blood pressure Diastolic blood pressure Provider Name and Address Organization Details Last Updated DateTime 4 176.53 cm 33.3 kg/m2 101264. 58 g 74 /min 98 % 98 % 118 mm[Hg] 66 mm[Hg] Nathan Mcfadden [facility] 4 16:03:07 Date Recorded Body height Body mass index (BMI) Body weight Heart rate Oxygen saturation Oxygen saturation in Arterial blood by Pulse oximetry Systolic blood pressure Diastolic blood pressure Provider Name and Address Organization Details Last Updated DateTime 5 176.53 cm 31.9 kg/m2 60642.5 3 g 78 /min 97 % 97 % 124 mm[Hg] 68 mm[Hg] Yasmine Degroot [place] [facility] 5 10:41:12 Social History Question Answer Notes LastModified by Organizat ion Details LastModified Time Tobacco Smoking Status Former Smoker Not Available [facility], [facility]–1983 07/06/2020 03:36:24 What Was The Date Of [...] mcg/0.3 mL dose 06/23/2021 completed Not Available [facility] 4 03:28:44 COVID-19, mRNA, LNP-S, PF, 30 mcg/0.3 mL dose 10/28/2020 completed Not Available [facility] 4 03:28:44 COVID-19, mRNA, LNP-S, PF, 30 mcg/0.3 mL dose 10/04/2020 completed Not Available [facility] 4 03:28:44 Past Encounters Encounter ID Performer Location Encounter Start Date Encounter Closed Date Diagnosis/Indication Diagnosis SNOMED-CT Code Diagnosis ICD10 Code Diagnosis Note [id number] DO [facility] [address] [facility],[place] [address] 12/25/2017 13:51:03 12/25/2017 14:30:35 Cough 78447820 R05 f/u 1 week, sooner prn, continue rest Coronary arteriosclerosis 82041135 I25.10 stable Type 2 val betes mellitus 97840984 E11.9 A1C 7.7, follow [id number] Pernell Angelita De La Rosa [facility] [address] [facility] [address], [place] [address] 01/02/2018 09:34:31 01/02/2018 11:41:29 Cough 37419400 R05 improved, pt to try OTC allergy medicine Psoriasis 3981861 L40.9 Pt to obtain home light therapy machine, defers other medication s, discussed risks skin cancers, pt aware [id number] Pernell De La Rosa [facility] [address] [facility] [address] [address] [place] [address] 01/25/2018 09:31:13 01/25/2018 11:05:28 Type 2 diabetes mellitus 24598953 E11.65 has worsened diet etc and correspond ing elevation of A1c at 8.2 admits to diet noncomplia nce and lack of time for exercise Essential hypertension 37267822 I10 bp stable and without issue with meds Ischemic h eart disease 071480418 I25.9 asymptomat ic and no change in meds [id number] Pernell Angelita De La Rosa [facility] [address] [facility],[place] [address] [place] [address] 05/01/2018 10:15:27 05/01/2018 11:28:15 Type 2 diabetes mellitus 92166501 E11.65 has a a1c of 7.5 does ok with activity and diet lately but admits to diet noncomplia nce and lack of time for exercise will cont to use metformin for now realizing his age and the med Essential hypertension 30237925 I10 bp stable and without issue with meds Ischemic h eart disease 239318076 I25.9 asymptomat ic and no change in meds [id number] Pernell AquinoAshish De La Rosa [facility] [address] [facility] [address], [address] [facility] [place] [address] 08/05/2018 10:15:07 08/05/2018 14:45:22 Abdominal aortic aneurysm screening 105045303 Z13.6 will get a screening Essential hypertension 50583607 I10 bp stable and without issue with meds Type 2 val betes mellitus 52165120 E11.65 has a a1c of 7.9 from 7.5, 8.2 does fair with activity and diet lately but admits to diet noncomplia nce and lack of time for exercise will cont to use metformin for now realizing his age and the med Impacted cerumen 3749917 6 H61.20 [id number] Pernell De La Rosa DO [facility] [address] [facility],[place] [address] 11/19/2018 14:13:50 11/19/2018 14:55:14 Psoriasis 9752210 L40.9 received kenalog injection Cellulitis 293545693 L03 .90 doxycyclin e for 10 take pro biotic Type 2 val betes mellitus 64732359 E11.65 will plan on rechecking the a1c in a couple months due to the bad timing of his recent outbreak and treatment has a a1c of 7.9 from 7.5, 8.2 does fair with activity and diet lately but admits to diet noncomplia nce and lack of time for exercise will cont to use metformin for now realizing his [place] the [place] [id number] Pernell De La Rosa DO [facility] [address] [facility],[place] [address] [place] [address] 02/25/2019 14:54:04 02/25/2019 16:33:07 Essential hypertension 78225130 I10 bp stable and without issue with meds Type 2 val betes mellitus 42574643 E11.65 will plan on rechecking the a1c in a couple months due to the bad timing of his recent outbreak and treatment has been getting kenalog inj has a a1c of 10 from 7.9, admits to diet noncomplia nce and lack of time for exercise asks to have a few months to get a1c down will cont to use metformin for now realizing his age and the med at current a1c he is not cleared for any surgery elective Ischemic h eart disease 507867105 I25.9 asymptomat ic and no change in meds Psoriasis 8640146 L40.9 received kenalog injection several weeks ago has been using the [employer] home sweet for tx and states is starting to notice a diff has had severe outbreak over the spring Pernell De La Rosa DO [facility] [address] [facility] [address] [address] [facility] [address] 04/25/2019 11:18:25 04/25/2019 11:49:53 Type 2 diabetes mellitus 72670882 E11.65 has a a1c of 7.8 now was 10 from 7.9, admits to diet compliance and better time for exercise will cont to use metformin for now realizing his age and the med at current a1c he is cleared for his surgery Essential hypertension 55200150 I10 bp stable and without issue with meds Pre-surger y evaluation 307472697 Z01.818 he has been examined and lab reviewed a1c is now down adequately , per the 2017 TAPAN (revised) risk assessment he is currently cleared for the proposed cataract surgery Patient understand s to take his usual medication s prior to surgery and knows to hold his metformin until after the procedure [id number] Pernell De La Rosa [facility] [address] [facility], [place] [address] 08/18/2019 10:48:58 08/18/2019 11:27:10 Type 2 diabetes mellitus 36399533 E11.65 has a a1c of 7.0. and was 7.8 and was 10 from 7.9, admits to diet compliance and better time for exercise will cont to use metformin for now realizing his age and the med at current a1c he is cleared for his surgery Essential hypertension 06123904 I10 bp stable and without issue with meds Hepatitis C screening 41 8603302 Z11.59 with next lab [id number] Pernell De La Rosa [facility] [address] [facility], [place] [address] 11/17/2019 10:51:50 11/17/2019 11:37:05 Type 2 diabetes mellitus 12879098 E11.65 has a a1c of 7.7 was 7.0. and was 7.8 and was 10 from 7.9, admits to diet compliance and better time for exercise will cont to use metformin for now realizing his age and the med at current a1c Essential hypertension 49541804 I10 bp stable and without issue with meds and has started to walk more states his left hip is more bothersome Hypercholesterolemia 136 39301 E78.00 Psoriasis 3453654 L40.9 has a light sweet in his garage but hadnt been using it at all over winter needs to restart as it does work well Basal cell carcinoma of face 036536799 C44.311 will refer to [facility] dr corbin as this needs to be removed [id number] Pernell De La Rosa [facility] [address] [facility] [address] [address] [place] [address] 02/20/2020 10:33:18 02/20/2020 11:33:01 Type 2 diabetes mellitus 14395844 E11.65 have been waiting for his lab will cont to use metformin for now realizing his age and the med at current a1c Essential hypertension 35508770 I10 bp stable and without issue with meds and has started to walk more states his left hip is more bothersome Hypercholesterolemia 136 42221 E78.00 awaiting for his cholestero l Ischemic h eart disease 360571801 I25.9 asymptomat ic and no change in meds [id number] Pernell De La Rosa [facility] [address] [facility] [address],[place] [place] [address] 06/28/2020 12:01:26 06/28/2020 12:36:19 Type 2 diabetes mellitus 55278869 E11.65 have been waiting for his lab but his last a1c is 6.8 was 7.7 so he is doing better thanks to his wifes cooking . will cont to use metformin for now realizing his age and the med at current a1c Essential hypertension 28594630 I10 bp stable and without issue with meds and has started to walk more states his left hip is more bothersome [id number] Pernell De La Rosa [facility] [address] [facility] [address] [place] [address] 11/05/2020 10:17:48 11/05/2020 10:56:16 Type 2 diabetes mellitus 88866402 E11.65 have been waiting for his lab but his last a1c is up to 7.8 and last was 6.8 and before was was 7.7 so he is doing better thanks to his wifes cooking .but admits he has had a prob with keeping good diet will cont to use metformin for now realizing his age and the med at current a1c 7.8 Essential hypertension 04715843 I10 bp stable and without issue with meds and has started to walk more states his left hip is more bothersome Hypercholesterolemia 136 32105 E78.00 awaiting for his cholestero l Onychomycosis 893998252 B35.1 will try to work at treatment with terbinafin e Ischemic h eart disease 347936554 I25.9 asymptomat ic and no change in meds Psoriasis 8777317 L40.9 has a light sweet in his garage but hadnt been using it at all over winter needs to restart as it does work well Screening for malignant neoplasm of colon 786180123 Z12.11 [id number] [facility] [address] [facility], [place] [address] 02/28/2021 09:58:27 02/28/2021 11:06:11 Essential hypertension 45519290 I10 bp stable relates that he is doing fine and without issue with meds and has started to walk more states his left hip is more bothersome Type 2 val betes mellitus 59091039 E11.65 have been waiting for his lab but his last a1c is up to 7.8 and last was 6.8 and before was was 7.7 so he is doing better thanks to his wifes cooking .but admits he has had a prob with keeping good pdlrn7d is pending will cont to use metformin for now realizing his age and the med at current his last a1c 7.8 Hypercholesterolemia 136 51293 E78.00 awaiting for his cholestero l Ischemic h eart disease 936323402 I25.9 asymptomat ic and no change in meds [id number] Pernell De La Rosa [facility] [address] [facility], [place] [address] 06/03/2021 08:16:54 06/03/2021 16:34:22 Ischemic heart disease 985523921 I25.9 asymptomat ic and no change in meds Essential hypertension 20384157 I10 bp stable relates that he is doing fine and without issue with meds and has started to walk more states his left hip is more bothersome Type 2 val betes mellitus [id number] E11.65 have been waiting for his lab but his last a1c is 7.7 and 7.4 and prior 7.8 and last was 6.8 and before was was 7.7 so he is doing better thanks to his wifes cooking .but admits he has had a prob with keeping good [id number] is pending will cont to use metformin for now realizing his age and the med at current his last a1c 7.8 [id number] Pernell De La Rosa [facility] Internal Medicine [address] [facility],[place] [address] 04/04/2022 15:55:30 04/04/2022 16:46:10 Type 2 diabetes mellitus [id number] E11.65 t his a1c is 6.4 and was 7.7 and 7.4 and prior 7.8 and last was 6.8 and before was was 7.7 so he is doing better thanks to his wifes cooking .but admits he has had a prob with keeping good dietdoing really well d Essential hypertension 95241481 I10 bp stable relates that he is doing fine and without issue with meds and has started to walk more states his left hip is more bothersome Hypercholesterolemia 136 85330 E78.00 awaiting for his polinaero l Advance care planning 71 5754395 Z71.89 Active or passive immunization 352277509 Z23 will consider pneumovax Benign pro static hyperplasia 114088908 N40.1 27126 Pernell De La Rosa [facility] Internal Medicine [address] [facility],[place] [address] 07/19/2022 09:38:46 07/19/2022 15:03:54 Type 2 diabetes mellitus 90204301 E11.65 currently is at 6.9 last a1c is 6.4 and was 7.7 and 7.4 and prior 7.8 and last was 6.8 and before was was 7.7 so he is doing better thanks to his wifes cooking .but admits he has had a prob with keeping good dietdoing really well otherwise except for the hips and the knees which are impacting how much he can be active Essential hypertension 11927926 I10 bp stable relates that he is doing fine and without issue with meds and has started to walk more states his left hip is more bothersome Screening for malignant neoplasm of colon 756878533 Z12.11 Active or passive immunization 702460185 Z23 patient advised he is due for tdap, pneu & shingles Ischemic h eart disease 633705815 I25.9 asymptomat ic and no change in meds Osteoarthritis of hip 23 5478234 M16.9 Bilateral osteoarthritis of knees 2536276292 89731 M17.0 Benign pro static hyperplasia 063127139 N40.1 he had some GI upset with tamsulosin he will try again with supper and call me with update 10336 Pernell De La Rosa [facility] Internal Medicine [address] [facility],[place] [address] 04/02/2023 13:40:14 04/02/2023 14:29:39 Essential hypertension 59280458 I10 bp stable relates that he is doing fine and without issue with meds and has started to walk more states his left hip is more bothersome Hypercholesterolemia 136 17956 E78.00 awaiting for his cholestero l Type 2 val betes mellitus 84865874 E11.65 currently is at6.4 was 7.1 last a1c is 6.4 and was 7.7 and 7.4 and prior 7.8 and last was 6.8 and before was was 7.7 so he is doing better thanks to his wifes cooking .but admits he has had a prob with keeping good dietdoing really well otherwise except for the hips and the knees which are impacting how much he can be active Ischemic h eart disease 169320428 I25.9 asymptomat ic and no change in meds Bilateral osteoarthritis of knees 6807586178 59341 M17.0 using otc like glucosamin and tylenol Pain of bi lateral hip joints 7775579487 6139466 M25.551 M25.552 using otc as above 21151 Pernell De La Rosa, [facility] Internal Medicine [address] [facility] [employer] [place] [address] 07/02/2023 11:12:08 07/02/2023 12:39:38 Essential hypertension 14010660 I10 bp stable relates that he is doing fine and without issue with meds and has started to walk more states his left hip is more bothersome Hypercholesterolemia 136 14712 E78.00 awaiting for his cholestero l Ischemic h eart disease 100537637 I25.9 asymptomat ic and no change in meds Type 2 val betes mellitus 79924403 E11.65 currently is at 6.8 despite the recent pericardit is PPRIOR 6.4 was 7.1 last a1c is 6.4 and was 7.7 and 7.4 and prior 7.8 and last was 6.8 and before was was 7.7 so he is doing better thanks to his wifes cooking .but admits he has had a prob with keeping good diet Acute kalani cardial effusion 03569457 I30.9 this is resolving colchicne will be continued has an echo supposedly ordered through cardiology next monthwill be followed up by cardiology Pericarditis 7017715 I31 .9 this is clearly improving cont the colchicine and cont the pantoprazo le 519127 Pernell De La Rosa [facility] Internal Medicine [address] [facility] [place], [facility] [address] 08/06/2023 11:03:59 08/06/2023 12:15:42 Hypercholesterolemia 53616766 E78.00 awaiting for his cholestero l Type 2 val betes mellitus 14425094 E11.65 currently is at 6.8 despite the recent pericardit is PPRIOR 6.4 was 7.1 last a1c is 6.4 and was 7.7 and 7.4 and prior 7.8 and last was 6.8 and before was was 7.7 so he is doing better thanks to his wifes cooking .but admits he has had a prob with keeping good diet Essential hypertension 50825862 I10 bp stable relates that he is doing fine and without issue with meds and has started to walk more states his left hip is more bothersome 624424 Pernell De La Rosa [facility] Internal Medicine [address] [facility] [address],[address] [employer] [facility] [place] [address] 10/12/2023 09:12:01 10/12/2023 11:45:20 Type 2 diabetes mellitus 70440114 E11.65 currently is at 6.8 despite the recent pericardit is PPRIOR 6.4 was 7.1 last a1c is 6.4 and was 7.7 and 7.4 and prior 7.8 and last was 6.8 and before was was 7.7 so he is doing better thanks to his wifes cooking .but admits he has had a prob with keeping good diet Essential hypertension 37971672 I10 bp stable relates that he is doing fine and without issue with meds and has started to walk more states his left hip is more bothersome Hypercholesterolemia 136 80832 E78.00 awaiting for his cholestero l Ischemic h eart disease 899635131 I25.9 asymptomat ic and no change in meds Post-acute COVID-19 1119 449298 U09.9 [id number] Pernell De La Rosa [facility] Internal Medicine [address] [facility],[place] [address] 11/19/2023 11:30:47 11/19/2023 12:08:27 Acute pericardial effusion 90560815 I30.9 this is resolved colchicne was done in monthwill be followed up by cardiology Pericarditis 5407264 I31 .9 this is clearly improving cont the colchicine and cont the pantoprazo le Essential hypertension 75739285 I10 bp stable relates that he is doing fine and without issue with meds and has started to walk more states his left hip is more bothersome Hypercholesterolemia 136 69332 E78.00 awaiting for his cholestero l Ischemic h eart disease 354446558 I25.9 asymptomat ic and no change in meds Type 2 val betes mellitus 19683072 E11.65 currently is at 6.8 despite the recent pericardit is PPRIOR 6.4 was 7.1 last a1c is 6.4 and was 7.7 and 7.4 and prior 7.8 and last was 6.8 and before was was 7.7 so he is doing better thanks to his wifes cooking .but admits he has had a prob with keeping good diet COVID-19 586838453 U07.1 now resolved just grupo wagner will be going to the gym 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,[place] [address] 02/25/2024 10:20:12 02/25/2024 13:40:17 Depression screening 528664551 Z13.31 negative Ischemic h eart disease 478509571 I25.9 asymptomat ic and no change in meds Type 2 val betes mellitus 31388678 E11.65 currently is pending prior 6.8 despite the recent pericardit is PRIOR 6.4 was 7.1 last a1c is 6.4 and was 7.7 and 7.4 and prior 7.8 and last was 6.8 and before was was 7.7 so he is doing better thanks to his wifes cooking .but admits he has had a prob with keeping good diet Essential hypertension 89393627 I10 bp stable relates that he is doing fine and without issue with meds and has started to walk more states his left hip is more bothersome Pericardial effusion 373 264420 I31.39 has noted exertional dyspnea and relates feels simsilar to last year when he had evid of the effusion he also has poss sleep apnea but e sleep test is pending 195518 Pernell De La Rosa, [facility] Internal Medicine [address] [facility],Emma [place] [facility] [address] 03/19/2024 16:01:00 03/19/2024 16:36:55 Essential hypertension 70256502 I10 bp stable relates that he is doing fine and without issue with meds and has started to walk more states his left hip is more bothersome echo looked great no issues Type 2 val betes mellitus 23937180 E11.65 currently is 7.5 was 7.2 prior 6.8 despite the recent pericardit is PRIOR 6.4 was 7.1 last a1c is 6.4 and was 7.7 and 7.4 and prior 7.8 and last was 6.8 and before was was 7.7 so he is doing better thanks to his wifes cooking .but admits he has had a prob with keeping good diet Hypercholesterolemia 136 87124 E78.00 awaiting for his cholestero l Psoriasis 7255447 L40.9 has a light sweet in his garage but hadnt been using it at all over winter needs to restart as it does work wellbegan looking into tremfya with skin 526178 Pernell De La Rosa, [facility] Internal Medicine [address] [facility],Emma Schuler [facility] [address] 04/08/2024 14:04:07 04/08/2024 14:57:24 Fatigue 46568615 R53.83 will set up with blood work to check to see if there is a correlatio n Atypical chest pain 1025 41520 R07.89 will r/o pulm/cardi ac process Nocturia 832053566 R35.1 check PSA and urine sample Constipation 74078521 K5 9.00 acute onset constipati on with urinary symptoms 779103 Pernell De La Rosa [facility] Internal Medicine [address] [facility],[place] [address] 04/28/2024 15:45:21 04/28/2024 16:46:37 Benign prostatic hyperplasia 034240102 N40.1 he had some GI upset with tamsulosin he will try again with supper and call me with update Essential hypertension 16167253 I10 bp stable relates that he is doing fine and without issue with meds and has started to walk more states his left hip is more bothersome and now he is noticing that his gait is less stable echo looked great no issues Type 2 val betes mellitus 52365515 E11.65 currently is 7.5 was 7.2 prior 6.8 despite the recent pericardit is PRIOR 6.4 was 7.1 last a1c is 6.4 and was 7.7 and 7.4 and prior 7.8 and last was 6.8 and before was was 7.7 so he is doing better thanks to his wifes cooking .but admits he has had a prob with keeping good diet Fatigue 59689855 R53.83 may be related to sleep deprivatio n noted his bladder issues which is prob all bph Tremor 73905522 R25.1 and hand weakness as well as gait instabilit y will order mri of c spine [id number] Pernell De La Rosa DO [facility] Internal Medicine [address] [facility],[place] [address] [place] [facility] [address] 08/29/2024 08:58:46 08/29/2024 15:54:19 Essential hypertension 88882656 I10 bp stable relates that he is doing fine and without issue with meds and has started to walk more states his left hip is more bothersome and now he is noticing that his gait is less stable echo looked great no issues Fatigue 49939392 R53.83 may be related to sleep deprivatio n noted his bladder issues which is prob all bph Ischemic h eart disease 019696174 I25.9 asymptomat ic and no change in meds Type 2 val betes mellitus 51871629 E11.65 a1c is pending PRIOR: currently is 7.5 was 7.2 prior 6.8 despite the recent pericardit is PRIOR 6.4 was 7.1 last a1c is 6.4 and was 7.7 and 7.4 and prior 7.8 and last was 6.8 and before was was 7.7 so he is doing better thanks to his wifes cooking .but admits he has had a prob with keeping good diet 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,[place] [address] 01/21/2025 10:30:29 01/21/2025 11:26:22 Type 2 diabetes mellitus 61744133 E11.65 a1c is pending today PRIOR: currently [...] prob with keeping good diet Essential hypertension 68232954 I10 bp stable relates that he is doing fine and without issue with meds and has started to walk more states his left hip is more bothersome and now he is noticing that his gait is less stable echo looked great no issues Psoriasis 9720922 L40.9 is doing better with naltrexone !!!! [facility] Hordeolum externum of upper eyelid of left eye [id number] 05739 H00.014 will tx Health Concerns Section Related Observation LastModified by Organization Caroline wong LastModified Time None Recorded Concern Status LastModified by Organization Details LastModified Time None Recorded Advance Directives Directive None Recorded Payers Encounter Date Sequence Insurance Name Policy Number Policy Espinal Covered Member ID Espinal Member ID Guarantor Name 03/19/[address] [place] [address] [id number] Ryley Quiroga [id number] Ryley Junaid 04/08/2024 1 [facility] [id number] Ryley Junaid [id number] Ryley Junaid 04/28/2024 1 [facility] [id number] Ryley Junaid [id number] Ryley Junaid 08/29/2024 1 [facility] [id number] Ryley Junaid [id number] Ryley Junaid 01/21/2025 1 [facility] [id number] Ryley Junaid [id number] Ryley Junaid Notes Date Note Type Note Provider Name and Address Organization Details Recorded Time 4 text/htm l here for rechk and is doing okhere to review echo which lookd duarte reviewed that he may be get tremflya inj for the psoriasisno cp does get exertional dyspnea Pernell De La Rosa DO [address] [place], [address], [facility] Internal Medicine 03/19/2024 16:34:37 4 text/htm l 1 mos f/u the patient reports that he has been seeing MB for the chest pressure like he had when he had pericarditis has had an US echo and sleep study were very normal continues with the chest pressure and fatigueconstantly taking naps, having increased urinary frequency and harder stools could be a thyroid problemsseems unlikely to be cardiac since screening has been negative has f/u with MB next week agreed to start with blood work and urine the patient has been using magnesium at night for cramps otherwise no new symptoms AYLIN LOPEZ [address] [place], [address], [facility] Internal Medicine 04/08/2024 14:35:06 4 text/htm l here for rechk and relates that he is very fatigued stillfeel he is not sleeping very wellwaking up a good 3 times at night with urge to urinate the strream is weaker and feels like he has to go and then doesnt seem to release much Pernell De La Rosa DO [address] [place], [address], [facility] Internal Medicine 04/28/2024 16:44:51 4 text/htm l patient is evaluated via tele/video assessment per patient consentduring current pandemic long discussion re pt having persistant fatigue and other symptoms which is believed to be from Long Covid he is going to be seeing a Dr L[place]is [place] Pernell De La Rosa DO [address] [place], [address], [facility] Internal Medicine 08/29/2024 15:44:20 5 text/htm l Care Management - DiabetesReported [...] blue for the mitochondrial diseasesees specialist in [place] doing a NAD tx for the mitochondrial ds but pays $625 for each infusion and also supp also taking naltrexone 3 tabs hs and his psoriasis and cleared up having an issue with his left eye irritated an swollen eyelid etc Pernell De La Rosa, [address] [facility], [place], [address], [facility] Internal Medicine 01/21/2025 11:17:17
[2025-01-21 13:28] LABS: Estimated Average Glucose 151 mg/dL; Hemoglobin A1C 189.9752 umol/L; Hemoglobin A1c % 6.9 % (<6.0)
== END 2025-01-21 11:19 | disposition home or self-care (01) ==
LOC: HO.MANLDS 11:18
PROVIDERS: Visit Provider Internal Medicine
DX: E11.65 Type 2 diabetes mellitus with hyperglycemia (principal)
CPT/HCPCS: 36415; 83036

== ENCOUNTER 2025-04-01 08:18 | Outpatient (REF) | payer OTHER, SELFPAY ==
--- OUTSIDE RECORDS SUMMARY | 2025-04-01 08:23 | XMS_ITS | Encounter Summary ---
Author Organization [facility] Address [address] [facility] [address] [place] [address] Phone Care Team Providers Care Certified Pharmacy Technician Name Role Phone Pernell Sharma DO Primary Care Provider [phone] Pernell Sharma DO Primary Care Provider [phone] Encounter Details Date Type Department Care Team (Late st Contact Info) Description 05/19/2023 Procedure Pass [facility], Ct Scan - [facility] [address] [place] [address] Social History Tobacco Use Types Packs/Day Years Used Date Smoking Tobacco: Never Smokeless Tobacco: Never Alcohol Use Standard Drinks/Week Comments Not Currently 0 (1 standard drink = 0.6 oz pur e alcohol) Education Answer Date Recorded Are you interested in more education? Not on hang e 12/29/2022 Are you concerned about learning? Not on file 12/29/2022 No 12/29/2022 No 12/29/2022 Digital Access Answer Date Recorded No 01/27/2023 No 01/27/2023 Reliable internet access at home? Not on file 01/27/2023 Device with a working camera? Not on file Sex and Gender Information Value Date Recorded Sex Assigned at Male 05/19/2023 10:44 AM EDT Legal Sex Male 10:05 PM EDT Gender Identity Male 05/19/2023 10:44 AM EDT Sexual Orientation Straight 06/12/2023 3: 13 PM EDT documented as of this encounter Functional Status * Calculated C-SSRS Risk Score (Lifetime/Recent) Answer Date of Assessment Author No Risk Indicated 05/19/2023 10:44 AM EDT Jessica Bailey RN * [place] Suicide Severity Rating Scale (Screener/Recent Self-Report) Question Answer Date of Assessment Author 1. Wish to be (Past 1 Month) No 023 10:44 AM EDT Jessica Bailey RN 2. Non-Specific Active Suici jorge Thoughts (Past 1 Month) No 05/19/2023 10:44 AM EDT Jessica Bailey RN 6. Suicidal Behavior (Lifetime) No 10:44 AM EDT Jessica Bailey RN documented as of this encounter Plan of Treatment Upcoming Encounters Date Type Department Care Team (Late st Contact Info) Description 04/13/2025 1:00 PM EDT Office Visit [facility] [address] [place] [address], [address] [place] [address] Isaac Corona DO [address] [place] [address] [place] [address] 01/29/2026 11:00 AM EDT Office Visit [facility] [address] [place] [address], [address] [place] [address] Felix Flores MD, [place] [address] [facility], [address] [address] [email or web address] documented as of this encounter Visit Diagnoses Not on filedocumented in this encounter Additional Health Concerns Infection Onset Date Last Indicated Resolved Time CoV-Risk 09/11/2023 09/11/2023 09/11/2023 4:57 PM EST COVID-19 09/11/2023 09/11/2023 10/02/2023 1:22 AM EST CoV-Risk Comment:Per note documentation 03/15/2025 03/15/2025 6:33 AM EDT documented as of this encounter Care Teams Certified Pharmacy Technician Relationship Specialty Start Date End Date Pernell Sharma DO PCP - General Internal Medicine 12/26/17 03/14/25 Pernell Sharma DO [address] [place] [address] [email or web address] PCP - General Internal Medicine 03/15/25 documented as of this encounter Additional Source Comments The information contained in this document represents components of the legal health record. It is not the complete legal health record.[facility]
[2025-04-01 14:34] LABS: Alanine Aminotransferase 20 U/L (0-40); Albumin Level 4.2 g/dL (3.5-5.0); Alkaline Phosphatase 48 U/L (39-117); Anion Gap 16 (12-20); Aspartate Amino Transferase 18 U/L (5-37); Blood Urea Nitrogen 21 mg/dL (9-16); Calcium 9.2 mg/dL (8.4-10.2); Carbon Dioxide 25 mmol/L (22-29); Chloride 104 mmol/L (96-108); Estimated Glomerular Filt Rate > 60; Potassium 4.5 mmol/L (3.3-5.1); Sodium 140 mmol/L (135-145); Total Protein 7.3 g/dL (6.5-8.0)
[2025-04-02 06:38] LABS: Follicle Stimulating Hormone 6.6 mIU/mL (1.4-12.8)
[2025-04-02 09:48] LABS: Lyme Abs Screen <0.90 index
[2025-04-06 21:23] LABS: Testosterone, Free 42.6 pg/mL (30.0-135.0)
[2025-04-08 09:08] LABS: Anti Nuclear Antibody Screen NEGATIVE (NEGATIVE)
[2025-04-09 02:18] LABS: Estradiol Ultra Sensitive 22 pg/mL (< OR = 29)
== END 2025-04-01 08:19 | disposition home or self-care (01) ==
LOC: HO.MANLDS 08:18
PROVIDERS: Visit Provider Physician Assistant
DX: A69.20 Lyme disease, unspecified (principal); M79.18 Myalgia, other site; R53.83 Other fatigue; I25.10 Atherosclerotic heart disease of native coronary artery without angina pectoris; E11.9 Type 2 diabetes mellitus without complications; E78.5 Hyperlipidemia, unspecified; R25.1 Tremor, unspecified; L40.9 Psoriasis, unspecified; G47.33 Obstructive sleep apnea (adult) (pediatric)
CPT/HCPCS: 36415; 80053; 82550; 82627; 82670; 83001; 83002; 84270; 84402; 84403; 85652; 86038; 86140; 86617; 86618; 86666; 86757

== ENCOUNTER 2025-04-08 11:41 | Outpatient (REF) | payer OTHER, SELFPAY ==
--- OUTSIDE RECORDS SUMMARY | 2025-04-08 12:28 | XMS_ITS | Encounter Summary ---
Author Organization [facility] Address [address] [facility] [address] [place] [address] Phone Care Team Providers Care Development Scientist Name Role Phone Pernell Sharma DO Primary Care Provider [phone] Pernell Sharma DO Primary Care Provider [phone] Encounter Details Date Type Department Care Team (Late st Contact Info) Description 05/19/2023 Procedure Pass [facility], Ct Scan - [facility] [address] [place] [address] Social History Tobacco Use Types Packs/Day Years [...] 10:44 AM EDT Jessica Bailey RN * [place] Suicide Severity Rating Scale (Screener/Recent Self-Report) Question [...] Description 04/13/2025 1:00 PM EDT Office Visit [facility] [address] [place] [address], [address] [place] [address] Isaac Corona DO [address] [place] [address] [place] [address] 01/29/2026 11:00 AM EDT Office Visit [facility] [address] [place] [address], [address] [place] [address] Felix Flores MD, MS 22 [facility], [address] [address] [email or web address] documented as of this encounter Visit Diagnoses Not on filedocumented in this encounter Additional Health Concerns Infection Onset Date Last Indicated Resolved Time CoV-Risk 09/11/2023 09/11/2023 09/11/2023 4:57 PM EST COVID-19 09/11/2023 09/11/2023 10/02/2023 1:22 AM EST CoV-Risk Comment:Per note documentation 03/15/2025 03/15/2025 6:33 AM EDT documented as of this encounter Care Teams Development Scientist Relationship Specialty Start Date End Date Pernell Sharma DO PCP - General Internal Medicine 12/26/17 03/14/25 Pernell Sharma DO [address] [place] [address] [email or web address] PCP - General Internal Medicine 03/15/25 documented as of this encounter Additional Source Comments The information contained in this document represents components of the legal health record. It is not the complete legal health record.[facility]
[2025-04-14 20:24] LABS: Testosterone, Free 48.3 pg/mL (30.0-135.0)
== END 2025-04-08 11:42 | disposition home or self-care (01) ==
LOC: HO.MANLDS 11:41
PROVIDERS: Visit Provider Physician Assistant
DX: R79.89 Other specified abnormal findings of blood chemistry (principal)
CPT/HCPCS: 36415; 84402; 84403

== ENCOUNTER 2025-05-25 12:06 | Outpatient (REF) | payer OTHER, SELFPAY ==
--- OUTSIDE RECORDS SUMMARY | 2025-05-25 14:49 | XMS_ITS | Encounter Summary ---
Author Organization [facility] Address [address] [place] [address] Phone Care Team Providers Care Marine Farmer Name Role Phone Pascualmelissa Pernell Aquino DO Primary Care Provider [phone] Pernell Sharma DO Primary Care Provider [phone] Encounter Details Date Type Department Care Team (Late st Contact Info) Description 12/25/2017 Ancillary Orders Virtual Department [address] [place] [address]
[2025-05-25 18:38] LABS: Alanine Aminotransferase 20 U/L (0-40); Albumin Level 4.4 g/dL (3.5-5.0); Alkaline Phosphatase 62 U/L (39-117); Anion Gap 13 (12-20); Aspartate Amino Transferase 19 U/L (5-37); Blood Urea Nitrogen 24 mg/dL (9-16); Calcium 9.8 mg/dL (8.4-10.2); Carbon Dioxide 28 mmol/L (22-29); Chloride 102 mmol/L (96-108); Estimated Glomerular Filt Rate > 60; Potassium 4.8 mmol/L (3.3-5.1); Sodium 138 mmol/L (135-145); Total Protein 7.7 g/dL (6.5-8.0)
[2025-05-30 14:13] LABS: Testosterone, Free 55.8 pg/mL (30.0-135.0)
== END 2025-05-25 12:07 | disposition home or self-care (01) ==
LOC: HO.MANLDS 12:06
PROVIDERS: Visit Provider Internal Medicine
DX: E11.65 Type 2 diabetes mellitus with hyperglycemia (principal); E34.9 Endocrine disorder, unspecified
CPT/HCPCS: 36415; 80053; 83036; 84402; 84403

== ENCOUNTER 2025-08-10 09:01 | Outpatient (REF) | payer OTHER, SELFPAY ==
[2025-08-10 14:47] LABS: Alanine Aminotransferase 25 U/L (0-40); Albumin Level 4.5 g/dL (3.5-5.0); Alkaline Phosphatase 64 U/L (39-117); Anion Gap 15 (12-20); Aspartate Amino Transferase 28 U/L (5-37); Blood Urea Nitrogen 19 mg/dL (9-16); Calcium 9.9 mg/dL (8.4-10.2); Carbon Dioxide 27 mmol/L (22-29); Chloride 104 mmol/L (96-108); Cholesterol 194 mg/dL (<200); Estimated Glomerular Filt Rate 59; HDL Cholesterol 47 mg/dL (>40); Potassium 4.4 mmol/L (3.3-5.1); Sodium 142 mmol/L (135-145); Total Protein 7.6 g/dL (6.5-8.0); Triglycerides 354 mg/dL (<150)
== END 2025-08-10 09:02 | disposition home or self-care (01) ==
LOC: HO.MANLDS 09:01
PROVIDERS: Visit Provider Internal Medicine
DX: E11.65 Type 2 diabetes mellitus with hyperglycemia (principal); E34.9 Endocrine disorder, unspecified
CPT/HCPCS: 36415; 80053; 80061; 83036; 84402; 84403